=== PATIENT | female | born 1960 | race Hispanic/Latino ===

== ENCOUNTER 2019-03-17 13:24 | Outpatient (CLI) | payer MEDICARE, MEDICAID ==
--- NOTE | 2019-03-17 18:36 | RAD ---
LEFT FOOT THREE VIEWS: 03/17/2019 FINDINGS: No acute fracture is seen. There is no periosteal reaction. There is a suggestion of some arthritic c hanges in some of the tarsal/metatarsal joints, especially the first. There has probably been old tra abisai to the base of the fifth metatarsal. The MTP joints may be beginning to get a little bit of osteo phyte formation. IMPRESSION: No acute findings. Longstanding changes, as noted above. POS: HOME
== END 2019-03-17 13:25 | disposition home or self-care (01) ==
LOC: BURRAD 13:24
PROVIDERS: ATTEND Physician Assistant
DX: M25.572 Pain in left ankle and joints of left foot (principal)